=== PATIENT | female | born 1975 | race Caucasian/White ===

== ENCOUNTER 2020-09-14 09:55 | Outpatient (REF) | payer OTHER, SELFPAY ==
[2020-09-14 12:02] LABS: HIV AB/AG Nonreactive (Nonreactive); HIV Num 1 0.07 S/CO (0.00-0.99)
[2020-09-15 06:43] LABS: Syphilis Screen Nonreactive (Nonreactive)
== END 2020-09-14 09:56 | disposition home or self-care (01) ==
LOC: HO.HMGCLDS 09:55
PROVIDERS: PCP Internal Medicine; Visit Provider Internal Medicine
DX: Z00.00 Encounter for general adult medical examination without abnormal findings (principal); Z11.4 Encounter for screening for human immunodeficiency virus [HIV]
CPT/HCPCS: 36415; 86780; 87389

== ENCOUNTER 2021-05-18 08:41 | Outpatient (REF) | payer OTHER, SELFPAY ==
[2021-05-18 11:37] LABS: Hematocrit 40.7 % (37.0-47.0); Hemoglobin 12.8 g/dl (12.0-16.0); Mean Corpuscular HGB Conc 31.4 g/dl (31.0-35.0); Mean Corpuscular Hemoglobin 27.2 pg (27.0-33.0); Mean Corpuscular Volume 86.6 fL (80.0-98.0); Platelet Count 307 X10*3/uL (160-400); Red Cell Distribution Width 13.6 % (11.0-16.0); White Blood Count 6.9 X10*3/uL (4.8-10.8)
[2021-05-18 12:04] LABS: Alanine Aminotransferase 28 U/L (0-31); Alkaline Phosphatase 67 U/L (39-117); Anion Gap 11 (12-20); Aspartate Amino Transferase 17 U/L (5-31); Bilirubin Total 0.2 mg/dL (0.0-1.0); Blood Urea Nitrogen 13 mg/dL (9-16); Calcium 9.5 mg/dL (8.4-10.2); Carbon Dioxide 24 mmol/L (22-29); Chloride 109 mmol/L (96-108); Cholesterol 224 mg/dL; Estimated Glomerular Filt Rate > 60; Glucose Fasting 93 mg/dL (60-99); HDL Cholesterol 42 mg/dL; LDL Cholesterol Calculated 153 mg/dl; Potassium 4.6 mmol/L (3.3-5.1); Sodium 139 mmol/L (135-145); Total Protein 6.6 g/dL (6.5-8.0); Triglycerides 149 mg/dL
[2021-05-18 12:16] LABS: TSH reflex Free T4 0.82 uIU/mL (0.32-4.0)
== END 2021-05-18 08:42 | disposition home or self-care (01) ==
LOC: HO.HMGCLDS 08:41
PROVIDERS: PCP Internal Medicine; Visit Provider Internal Medicine
DX: E78.5 Hyperlipidemia, unspecified (principal)
CPT/HCPCS: 36415; 80053; 80061; 84443; 85027

== ENCOUNTER 2022-07-11 09:24 | Outpatient (REF) | payer OTHER, SELFPAY ==
[2022-07-11 12:35] LABS: Alanine Aminotransferase 23 U/L (0-31); Albumin Level 4.3 g/dL (3.5-5.0); Alkaline Phosphatase 70 U/L (39-117); Anion Gap 8 (12-20); Aspartate Amino Transferase 16 U/L (5-31); Bilirubin Total 0.6 mg/dL (0.0-1.0); Blood Urea Nitrogen 21 mg/dL (9-16); Calcium 9.4 mg/dL (8.4-10.2); Carbon Dioxide 28 mmol/L (22-29); Chloride 107 mmol/L (96-108); Cholesterol 286 mg/dL; Estimated Glomerular Filt Rate > 60; Glucose Fasting 77 mg/dL (60-99); HDL Cholesterol 49 mg/dL; LDL Cholesterol Calculated 206 mg/dl; Potassium 4.4 mmol/L (3.3-5.1); Sodium 139 mmol/L (135-145); Triglycerides 156 mg/dL
== END 2022-07-11 09:25 | disposition home or self-care (01) ==
LOC: HO.HMGCLDS 09:24
PROVIDERS: PCP Internal Medicine; Visit Provider Internal Medicine
DX: E78.5 Hyperlipidemia, unspecified (principal)
CPT/HCPCS: 36415; 80053; 80061

== ENCOUNTER 2022-08-04 09:27 | Outpatient (REF) | payer OTHER, SELFPAY ==
[2022-08-07 12:43] LABS: TS Negative Control Passed; TS Panel A 0; TS Panel B 3; TS Positive Control Passed; TSpotTB Negative (Negative)
== END 2022-08-04 09:28 | disposition home or self-care (01) ==
LOC: HO.HMGCLDS 09:27
PROVIDERS: PCP Internal Medicine; Visit Provider Internal Medicine
DX: Z11.1 Encounter for screening for respiratory tuberculosis (principal)
CPT/HCPCS: 36415; 86481

== ENCOUNTER 2023-09-24 14:11 | Outpatient (AMB) | payer OTHER, SELFPAY ==
[2023-09-24 14:17] VITALS: BP 120/82; PULSE 77; O2SAT 98
--- NOTE | 2023-09-24 14:17 | MHC.PC.OV ---
Vital Signs 09/24/23 14:17 Height 5 ft 3 in BMI Reason not done Patient refused/unable BP 120/82 Blood Pressure Location Lt brachial Position Sitting Pulse 77 Pulse Source Pulse Oximeter Pulse Oximetry (%) 98 Oxygen Delivery Method Room Air Intake Visit Reasons: Discuss Ref Colonoscopy Intake Note: Pt is here today for a follow up visit to discuss colonoscopy. Allergies [place] And Derivatives [CITRUS] Allergy (Unknown, Verified 09/24/23 14:38) RASH Medication List - Last Reconciled 09/24/23 by Arina Salinas MD estradiol patches transdermal Tobacco use date assessed: 09/24/23 Dental Screening Dental Screen Date: 09/24/23 Did you have a dental visit in the last 12 months?: Yes Did you have a dental problem in the last 6 months where you did not have access to dental care?: No Was dental information given to patient?: Patient has dentist HPI Discuss Ref Colonoscopy HPI Details Pt presents for PE. 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 Patient has signed up for weight management program to help her lose weight [facility] Medical History (Updated 09/24/23 @ 15:24 by Arina Salinas MD) Skin growth Dysplastic nevus Family history of breast cancer in sister STD exposure Sciatica Annual physical exam Overweight Hyperlipidemia Postnasal drip Lumbago with sciatica, right side Lumbago with sciatica, left side Anxiety Early menopause occurring in patient age younger than 45 years Surgical History History of ovarian cyst Family History Father CAD (coronary artery disease) Hyperlipidemia Mother HTN (hypertension) Diabetes mellitus Social History Housing: House Alcohol intake: never Patient Tobacco Use Status: Never used Tobacco e-Cigarette/Vaping Use: Never Used service: No Current occupational status: employed Cognitive needs: No Hearing needs: No Vision needs: Yes Questionnaire PHQ-9 Over the last 2 weeks, how often have you been bothered by any of the following problems? 1. Little interest or pleasure in doing things: not at all 2. Feeling down, depressed, or hopeless: not at all 3. Trouble falling or staying asleep, or sleeping too much: not at all 4. Feeling tired or having little energy: not at all 5. Poor appetite or overeating: not at all 6. Feeling bad about yourself - or that you are a failure or have let yourself or your family down: not at all 7. Trouble concentrating on things, such as reading the newspaper or watching television: not at all 8. Moving or speaking so slowly that other people could have noticed. Or the opposite - being so fidgety or restless that you have been moving around a lot more than usual: not at all 9. Thoughts that you would be better off or of hurting yourself in some way: not at all Total score: 0 Depression Screening Interpretation: Negative Depression Screening Done: Yes Source: Developed by Drs. Ilya Hilton, Ashlee Kelley, Joseph Brody and colleagues, with an educational ryan from [email or web address]. Thrive Questionnaire Date Thrive assessed: 09/24/23 I am a: Patient What is your living situation today?: I have a steady place to live Within the past 12 months, did the food you bought not last and you didn't have the money to get more?: I choose not to answer this question Within the past 12 months, did you worry whether your food would run out before you got money to buy more?: Never true Do you have trouble paying for medicines?: No Do you have trouble getting transportation to medical appointments?: No Do you have trouble paying your heating and electricity bill?: No Do you have trouble taking care of your child, family member or friend?: No Do you have trouble with day-to-day activities such as bathing, preparing meals, shopping, managing finances, etc.?: No Are you currently unemployed and looking for a job?: No Are you interested in more education?: No Please select the resources that you would like help with: Housing/[facility] Currently or been in a relationship where the following occur: No concerns reported THRIVE Score: 0 AUDIT C Alcohol Use Questionnaire (AUDIT-C) 1. How often do you have a drink containing alcohol?: Never 3. How often do you have six or more drinks on one occasion?: Never Total Score: 0 REBECCA-7 AMB Questionnaire REBECCA-7 Date REBECCA - 7 assessed: 09/24/23 Feeling nervous, anxious, or on edge: 0 = Not at all Not being able to stop or control worryin = Not at all Worrying too much about different things: 0 = Not at all Trouble relaxin = Not at all Being so restless that it is hard to sit still: 0 = Not at all Becoming easily annoyed or irritable: 0 = Not at all Feeling afraid as if something awful might happen: 0 = Not at all Total REBECCA-7 score (0-4 normal; 5-9 mild; 10-14 moderate; 15-21 severe): 0 Source: Developed by Drs. Ilya Hilton, Ashlee Kelley, Joseph Brody and colleagues, with an educational ryan from [email or web address]. Review of Systems Const All systems reviewed & are unremarkable except as noted in HPI and below Reports no additional complaints Eyes Reports no additional complaints ENT Reports no additional complaints Card Reports no additional complaints Resp Reports no additional complaints GI Reports no additional complaints Reports no additional complaints Musc Reports no additional complaints Physical exam (Primary Care) Vital Signs: Last Vital Signs Pulse 77 09/24/23 14:17 BP 120/82 09/24/23 14:17 Pulse Ox 98 09/24/23 14:17 Oxygen Delivery Method Room Air 09/24/23 14:17 Tobacco/Smoking Status: Tobacco use Status Tobacco use date assessed 09/24/23 09/24/23 14:19 Patient Tobacco Use Status Never used Tobacco 09/24/23 14:19 e-Cigarette/Vaping Use Never Used 09/24/23 14:19 PHQ-9: PHQ-9 Score PHQ-9: Total score 0 09/24/23 14:19 Depression Screening Interpretation: Negative Thrive Assessment: Date of Thrive Assessment Date Thrive assessed 09/24/23 09/24/23 14:19 Currently or been in a relationship where the following occur: No concerns reported Const General: no acute distress HENMT Head: Yes normal to inspection Ears: hearing grossly normal bilaterally Face and sinus: Yes normal facial exam Mouth: Normal oral and palatal mucosa present Throat: Yes posterior oropharynx normal Eyes General: appearance normal, both eyes and all related structures Neck Neck: Yes no lymphadenopathy and Yes supple Resp Effort & Inspection: normal respiratory effort Auscultation: clear to auscultation bilaterally Cardio Rhythm: regular rhythm Heart sounds: S1 normal heart sound present and S2 normal heart sound present GI Inspection: Yes normal to inspection Palpation (GI): Soft to palpation Percussion: Yes normal to percussion Auscultation: normal bowel sounds Assessment and Plan Assessment & Plan (1) Allergies: Code(s): T78.40XA - Allergy, unspecified, initial encounter Plan: Referred to the supervisor drilling and shooting. For chronic sore throat patient was advised to try Pepcid at bedtime and avoid late meals. She will continue Xyzal (2) Hyperlipidemia: Code(s): E78.5 - Hyperlipidemia, unspecified Plan: Low-cholesterol diet increase physical activity discussed with the patient. She will return for fasting blood work including lipid profile (3) Overweight: Code(s): E66.3 - Overweight Plan: Decrease caloric intake increase physical activity discussed with the patient. She will follow-up with the weight management (4) Annual physical exam: Code(s): Z00.00 - Encounter for general adult medical examination without abnormal findings Plan: Well-balanced diet regular physical activity weight loss discussed with the patient. She is up-to-date with the mammogram. She will be referred to GI for colonoscopy patient requested Dr. 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 Panel Fast Today E66.3 - Overweight, E78.5 - Hyperlipidemia, unspecified, Z00.00 - Encounter for general adult medical examination without abnormal findings Complete Blood Count Auto Diff Today E66.3 - Overweight, E78.5 - Hyperlipidemia, unspecified, Z00.00 - Encounter for general adult medical examination without abnormal findings UA w Microscopic Today E66.3 - Overweight, E78.5 - Hyperlipidemia, unspecified, Z00.00 - Encounter for general adult medical examination without abnormal findings Referrals Allergy & Immunology Referral T78.40XA - Allergy, unspecified, initial encounter Gastroenterology Referral Z00.00 - Encounter for general adult medical examination without abnormal findings Coding Level of Care Code Est Pt Prev Care 40-64y(53547) Diagnoses Allergies T78.40XA Hyperlipidemia E78.5 Overweight E66.3 Annual physical exam Z00.00 Early menopause occurring in patient age younger than 45 years E28.319
== END 2023-09-24 15:11 | disposition home or self-care (01) ==
PROVIDERS: PCP Internal Medicine; Visit Provider Internal Medicine
DX: T78.40XA Allergy, unspecified, initial encounter (principal); E78.5 Hyperlipidemia, unspecified; E66.3 Overweight; Z00.00 Encounter for general adult medical examination without abnormal findings; E28.319 Asymptomatic premature menopause
CPT/HCPCS: 99396

== ENCOUNTER 2023-11-08 07:09 | Outpatient (REF) | payer OTHER, SELFPAY ==
[2023-11-08 10:15] LABS: MANUAL DIFF FLAG NO
[2023-11-08 10:20] LABS: Basophils Percent Auto 0.4 % (0-2); Eosinophils Absolute Auto 0.2 X10*3/uL (0.0-0.4); Eosinophils Percent Auto 1.9 % (0-4); Hematocrit 37.9 % (37.0-47.0); Hemoglobin 12.2 g/dl (12.0-16.0); Imm Gran Abs Auto 0.02 X10*3/uL (0.00-0.03); Imm Gran Pct Auto 0.3 % (0.0-0.4); Lymphocytes Absolute Auto 3.3 X10*3/uL (1.2-4.9); Lymphocytes Percent Auto 41.3 % (20-40); Mean Corpuscular HGB Conc 32.2 g/dl (31.0-35.0); Mean Corpuscular Hemoglobin 27.3 pg (27.0-33.0); Mean Corpuscular Volume 84.8 fL (80.0-98.0); Mean Platelet Volume 9.8 fL (9.4-12.3); Monocytes Absolute Auto 0.5 X10*3/uL (0.1-1.2); Monocytes Percent Auto 6.3 % (2-11); Neutrophils Percent Auto 49.8 % (45-73); Platelet Count 367 X10*3/uL (160-400); Red Blood Count 4.47 X10*6/uL (4.20-5.50); Red Cell Distribution Width 13.2 % (11.0-16.0)
[2023-11-08 10:49] LABS: Alanine Aminotransferase 30 U/L (0-31); Albumin Level 3.9 g/dL (3.5-5.0); Alkaline Phosphatase 68 U/L (39-117); Anion Gap 11 (12-20); Aspartate Amino Transferase 17 U/L (5-31); Bilirubin Total 0.3 mg/dL (0.0-1.0); Blood Urea Nitrogen 15 mg/dL (9-16); Calcium 9.4 mg/dL (8.4-10.2); Carbon Dioxide 26 mmol/L (22-29); Chloride 108 mmol/L (96-108); Cholesterol 252 mg/dL (<200); Estimated Glomerular Filt Rate > 60; Glucose Fasting 92 mg/dL (60-99); HDL Cholesterol 37 mg/dL (>40); LDL Cholesterol Calculated 138 mg/dL (<100); Potassium 4.3 mmol/L (3.3-5.1); Sodium 141 mmol/L (135-145); Total Protein 6.9 g/dL (6.5-8.0); Triglycerides 388 mg/dL (<150)
[2023-11-08 11:04] LABS: TSH reflex Free T4 1.69 uIU/mL (0.32-4.0)
== END 2023-11-08 07:10 | disposition home or self-care (01) ==
LOC: HO.HMGCLDS 07:09
PROVIDERS: PCP Internal Medicine; Visit Provider Internal Medicine
DX: Z00.00 Encounter for general adult medical examination without abnormal findings (principal); E66.3 Overweight; E78.5 Hyperlipidemia, unspecified
CPT/HCPCS: 36415; 80053; 80061; 84443; 85025